=== PATIENT | female | born 1980 | race Two or more races ===

== ENCOUNTER 2019-06-29 21:02 | Emergency (ER) | payer MEDICAID ==
[~2019-06-29] VITALS: Ht 154.9 cm; Wt 82.0 kg
--- NOTE | 2019-06-29 21:22 | NUR ---
MD AT BEDSIDE TO ASSESS PT
--- NOTE | 2019-06-29 21:23 | NUR ---
THIS IS A 39Y F THAT COMES IN FOR C/O ABD PAIN W/ N/V/D SINCE 1200 TODAY. PT DENIES FEVERS, CHILLS. STS IT CAME ON SUDDENLY AND HAS NOT BEEN AROUND ANYONE WITH ILLNESS RECENTLY. PT AND CHILDREN AT BEDSIDE. CONNECTED TO MONITORING VSS.
[2019-06-29] MEDS ORDERED: SODIUM CHLORIDE FLUSH 10ML SYR IVF ONE (21:30)
[2019-06-29] MEDS ORDERED: SODIUM CHLORIDE 0.9% 1,000ML IVBOLUS ONE (21:30)
[2019-06-29] MEDS ORDERED: FAMOTIDINE 20 MG/2 ML IVPush ONE (21:30)
[2019-06-29] MEDS ORDERED: KETOROLAC 30 MG/1 ML IVPush ONE (21:30)
[2019-06-29] MEDS ORDERED: ONDANSETRON 2MG/ML, 2ML IVPush ONE (21:30)
--- NOTE | 2019-06-29 21:30 | NUR ---
PT EDUCATED ON NEED FOR URINE SAMPLE.
[2019-06-29 21:40] LABS: BASOPHILS # (AUTO) 0.04 x10^3/uL (0-0.1); BASOPHILS % (AUTO) 0 % (0-1); EOSINOPHILS # (AUTO) 0.33 x10^3/uL (0-0.4); EOSINOPHILS % (AUTO) 3 % (1-7); LYMPHOCYTES # (AUTO) 1.67 x10^3/uL (1-3.4); LYMPHOCYTES % (AUTO) 13 % (22-44); MD NO; MEAN CORPUSCULAR HEMOGLOBIN 28.8 pg (27.0-34.8); MEAN CORPUSCULAR HGB CONC 33.9 g/dL (32.4-35.8); MEAN CORPUSCULAR VOLUME 84.9 fL (80-100); MEAN PLATELET VOLUME 9.9 fL (7.4-10.4); MONOCYTES # (AUTO) 0.79 x10^3/uL (0.2-0.8); MONOCYTES % (AUTO) 6 % (2-9); NEUTROPHILS # (AUTO) 10.01 x10^3/uL (1.8-6.8); NEUTROPHILS % (AUTO) 78 % (42-75); PLATELET COUNT 272 x10^3/uL (130-400); RED BLOOD COUNT 5.01 x10^6/uL (3.82-5.3); RED CELL DISTRIBUTION WIDTH 13.7 % (9.6-15.2)
[2019-06-29] MEDS ORDERED: FAMOTIDINE 20 MG/2 ML ONE (21:41)
[2019-06-29] MEDS ORDERED: KETOROLAC 30 MG/1 ML ONE (21:41)
[2019-06-29] MEDS ORDERED: ONDANSETRON 2MG/ML, 2ML ONE (21:41)
[2019-06-29 21:53] LABS: ALANINE AMINOTRANSFERASE 24 U/L (12-78); ALBUMIN 4.4 g/dL (3.4-5.0); ANION GAP 10 mmol/L (5-15); CALCIUM 9.3 mg/dL (8.5-10.1); CHLORIDE 111 mmol/L (98-107); CREATININE 0.94 mg/dL (0.55-1.02)
[2019-06-29 21:55] LABS: ALKALINE PHOSPHATASE 90 U/L (45-117); BILIRUBIN,TOTAL 0.3 mg/dL (0.2-1.0); TOTAL PROTEIN 8.6 g/dL (6.4-8.2)
[2019-06-29 23:09] LABS: HCG UR SG 1.032 (1.003-1.030); MICROSCOPIC NOT IND
[2019-06-29 23:11] LABS: CULTURE INDICATED? NO
[2019-06-29 23:58] VITALS: BP 110/62
== END 2019-06-30 00:03 | disposition home or self-care (01) ==
LOC: ED 23:00
DX: R10.84 Generalized abdominal pain (principal); R19.7 Diarrhea, unspecified; R11.0 Nausea; R42 Dizziness and giddiness
CPT/HCPCS: 36415; 80053; 81003; 81025; 83690; 85025; 93005; 96361; 96374; 96375; 99284; J1885; J2405; J3490; J7030